=== PATIENT | female | born 1945 | race Hispanic/Latino ===

== ENCOUNTER 2018-08-25 11:17 | Outpatient (CLI) | payer MEDICARE ==
--- NOTE | 2018-08-25 12:18 | XRay Report ---
BILATERAL KNEES, 3 VIEWS History: Pain. Findings: Bone mineralization appears borderline. There is no evidence for fracture, bone lesion or advanced degenerative changes. Mild medial compartment joint space narrowing is suspected in both knees. The soft tissues are unremarkable. Impression: Mild medial compartment joint space narrowing in both knees. No acute process.
== END 2018-08-25 11:18 | disposition home or self-care (01) ==
LOC: XRAY 11:17
PROVIDERS: ATTEND Internal Medicine
DX: M25.561 Pain in right knee (principal); M25.562 Pain in left knee; Z88.2 Allergy status to sulfonamides